=== PATIENT | female | born 1940 | race Two or more races ===

== ENCOUNTER 2017-10-22 05:45 | Day surgery (SDC) | payer MEDICARE, MEDICAID, SELFPAY ==
--- NOTE | 2017-10-18 10:21 | Pre-Procedure Note/Attestation ---
Pre-Procedure Note/Attestation Complete Prior to Procedure Planned Procedure: left Procedure Narrative: 1. CATARACT EXTRACTION WITH PHACO AND PC IOL IMPLANTATION, LEFT EYE. 2. LIMBAL RELAXING INCISION, LEFT EYE. Indications for Procedure Pre-Operative Diagnosis: 1. CATARACT (AGE RELATED NUCLEAR) , LEFT EYE. 2.ASTIGMATISM , LEFT EYE. Attestation I attest that I discussed the nature of the procedure; its benefits; risks and complications; and alternatives (and the risks and benefits of such alternatives ), prior to the procedure, with the patient (or the patient's legal service support representative). I attest that, if there was a reasonable possibility of needing a blood transfusion, the patient (or the patient's legal service support representative) was given the [place] Department [employer] standardized written summary, pursuant to the Epifanio Catlett Blood Safety Act ([place] Health and Safety Code # 1645, as amended). I attest that I re-evaluated the patient just prior to the surgery and that there has been no change in the patient's H&P, except as documented below: Gian Lee MD Oct 18, 2017 10:21
[2017-10-22] VITALS (9 sets, daily range): BP systolic 139–155; BP diastolic 65–81
[~2017-10-22] VITALS: Ht 152.4 cm; Wt 77.1 kg
[~2017-10-22 05:45] MED LIST: AMLODIPINE BESYL5 MG ORAL; JANUMET 50-5001 EACH ORAL; LEXAPRO10 MG ORAL; MELOXICAM15 MG PO; NEXIUM40 MG ORAL; NORVASC5 MG ORAL; TRAMADOL HCL50 MG ORAL; VIT D PO; VYTORIN 10-401 EACH ORAL; ZANTAC150 MG ORAL
[2017-10-22] MEDS ORDERED: acetaZOLAMIDE 125mg tab ORAL ONE (06:00)
[2017-10-22] MEDS: Akten 3.5% 1ml Btl LEFT EYE SCH ×3 (06:10→06:36)
[2017-10-22] MEDS: Diclofenac Sod 0.1% Op Soln LEFT EYE SCH ×3 (06:11→06:36)
[2017-10-22] MEDS: Vigamox Opth Soln 3ml LEFT EYE SCH ×3 (06:11→06:36)
[2017-10-22] MEDS: Phenylephrine 10% Opth Soln 5ml LEFT EYE SCH ×3 (06:11→06:36)
[2017-10-22] MEDS: Tropicamide 1% Opth 15ml Soln LEFT EYE SCH ×3 (06:11→06:36)
[2017-10-22] MEDS ORDERED: Lidocaine 1% MPF 10mg/ml 5ml ONE (07:02)
[2017-10-22] MEDS ORDERED: EPINEPHrine 1mg/1ml Amp ONE (07:02)
[2017-10-22] MEDS ORDERED: Carbachol 0.01% Op Soln 1.5ml vial ONE (07:03)
--- NOTE | 2017-10-22 07:41 | Anethesia Preoperative Eval ---
Anesthesia Pre-op PMH/ROS General Date of Evaluation: Oct 22, 2017 Anesthesiologist: Avery ASA Score: ASA 3 Mallampati Score Class I : Soft palate, uvula, fauces, pillars visible Class II: Soft palate, uvula, fauces visible Class III: Soft palate, base of uvula visible Class IV: Only hard plate visible Mallampati Classification: Class II Surgeon: Jameel Diagnosis: Left cataract Surgical Procedure: Left cataract extraction with IOL Anesthesia History: none Family History: no anesthesia problems Allergies: Coded Allergies: No Known Allergies (Unverified , 10/04/17) Medications: see eMAR Past Medical History Cardiovascular: Reports: HTN, other - HLD; Denies: CAD, OK, valve dz, arrhythmia Pulmonary: Denies: asthma, COPD, GINO, other Gastrointestinal/Genitourinary: Reports: GERD; Denies: CRI, ESRD, other Neurologic/Psychiatric: Reports: depression/anxiety; Denies: dementia, CVA, TIA, other Endocrine: Reports: DM; Denies: hypothyroidism, steroids, other HEENT: Denies: cataract (L), cataract (R), glaucoma, NEWTOK (L), NEWTOK (R), other Hematology/Immune: Reports: other - Left breast cancer; Denies: anemia, DVT, bleeding disorder Musculoskeletal/Integumentary: Reports: OA; Denies: RA, DJD, DDD, edema, other PSxH Narrative: right cataract, left mastectomy, KATHERINE BSO, bilateral TKR Anesthesia Pre-op Phys. Exam Physician Exam Last Vital Signs Date Time Temp Pulse Resp B/P (MAP) Pulse Ox O2 Delivery O2 Flow Rate FiO2 10/22/17 06:27 97.7 78 20 152/79 97 Room Air 97.7 Constitutional: NAD Cardiovascular: RRR Respiratory: CTA Airway Exam Mallampati Score: Class II MO: full ROM: full Anesthesia Pre-op A/P Labs see chart Studies Pre-op Studies: EKG - sr Risk Assessment & Plan Assessment: ASA III Plan: MAC Status Change Before Surgery: No Pre-Antibiotics Drug: N/A ELIDIA GARCIA M.D. Oct 22, 2017 07:41
[2017-10-22] MEDS ORDERED: LR 1000ml 1,000 ML IVLG SCH (07:47)
[2017-10-22] MEDS ORDERED: Labetalol 5mg/ml 20ml vial IV PRN (08:00)
[2017-10-22] MEDS ORDERED: DiphenhydrAMINE 50mg/ml Inj IVP PRN (08:00)
--- NOTE | 2017-10-22 08:54 | Immediate Post-Op Evaluation ---
Immediate Post-Op Evalulation Immediate Post-Op Evalulation Procedure: Left cataract extraction with IOL Date of Evaluation: Oct 22, 2017 Time of Evaluation: 09:33 IV Fluids: 300 Blood Products: 0 Estimated Blood Loss: 0 Urinary Output: 0 Blood Pressure Systolic: 150 Blood Pressure Diastolic: 81 Pulse Rate: 88 Respiratory Rate: 16 O2 Sat by Pulse Oximetry: 98 Temperature (Fahrenheit): 99.2 Pain Score (1-10): 0 Nausea: No Vomiting: No Complications 0 Patient Status: awake, reacts, patent, none Hydration Status: adequate Drug: N/A ELIDIA GARCIA M.D. Oct 22, 2017 08:54
--- NOTE | 2017-10-22 08:55 | 48 Hour Post Anesthesia Eval ---
Post Anesthesia Evaluation Procedure: Left cataract extraction with IOL Date of Evaluation: Oct 22, 2017 Airway: patent Nausea: No Vomiting: No Pain Intensity: 0 Hydration Status: adequate Cardiopulmonary Status: at baseline Mental Status/LOC: patient returned to baseline Post-Anesthesia Complications: 0 Follow-up care needed: ready to discharge ELIDIA GARCIA M.D. Oct 22, 2017 08:55
[2017-10-22] MEDS ORDERED: Sodium Hyaluronate 10 mg/ml 0.85ml ONE (09:11)
--- NOTE | 2017-10-22 09:32 | Discharge Summary ---
Discharge Summary Discharge Summary Discharge Summary DATE OF ADMISSION: 10/22/2017 DATE OF DISCHARGE: 10/22/2017 REASON FOR HOSPITALIZATION: 1- Cataract, left eye 2- Astigmatism, Left eye SURGERY PERFORMED: 1- Cataract extraction with phaco and PC IOL implantation, left eye 2- Limbal relaxing incision ( LRI ), left eye CONDITION IN THE HOSPITAL:The patient tolerated the surgery without complications. DISCHARGE CONDITION: The patient was stable at discharge. DISCHARGE MEDICATIONS: 1. Vigamox eye drops one drop q.i.d, OS 2. Prednisolone one drop q.i.d, OS 3. Prolensa 1 drop qd, OS POSTOPERATIVE ORDERS: The patient has to rest at home. No bending, No lifting, No watching Television tonight. POSTOPERATIVE FOLLOW UP: The patient will be followed in my office tomorrow morning at 7 o'clock. Gian Lee MD Oct 22, 2017 09:32
--- NOTE | 2017-10-22 09:36 | Brief Operative Note ---
Immediate Post Operative Note Operative Note Chief Complaint: Blurry vision, difficulty driving and reading, left eye Pre-op Diagnosis: 1. CATARACT (AGE RELATED NUCLEAR) , LEFT EYE. 2.ASTIGMATISM , LEFT EYE. Procedure: 1- Cataract extraction with phaco and PC IOL implantation, left eye 2- Limbal Relaxing incision, ( LRI ), left eye Post-op Diagnosis: same as pre-op Surgeon: Gian Lee MD. Showroom Salesperson: None Additional Surgeons: None Anesthesiologist: Dr. Varela Anesthesia: MAC Specimen: none Complications: none Condition: stable Fluids: 500ml Estimated Blood Loss: none Drains: none Implant(s) used?: Yes - Multifocal PC IOL implanted in the left eye without complication Gian Lee MD Oct 22, 2017 09:36
[2017-10-22] MEDS ORDERED: acetaZOLAMIDE 125mg tab ONE (09:46)
--- NOTE | 2017-10-22 22:15 | Operative Note - Dictated ---
DATE OF OPERATION: 10/22/2017 FACILITY: [facility]. SURGEON: Gian Lee M.D. TOWER CLEANER: None. ANESTHESIOLOGIST: Sanjuana Varela M.D. ANESTHESIA: Monitored anesthesia care (MAC). PREOPERATIVE DIAGNOSES: 1. Cataract, left eye. 2. Astigmatism, left eye. POSTOPERATIVE DIAGNOSES: 1. Cataract, left eye. 2. Astigmatism, left eye. SURGERY PERFORMED: 1. Cataract extraction with phacoemulsification of posterior chamber intraocular lens implantation in the left eye. 2. Limbal relaxing incision (LRI) in the left eye. INDICATION FOR SURGERY: The patient is a 78-year-old lady with history of left breast cancer, status post total mastectomy, diabetes mellitus type 2, hypertension, obesity, hypercholesterolemia, osteoarthritis, GERD, atrophic vaginitis, osteopenia and morbid obesity. Surgical history including hysterectomy, bilateral oophorectomy, mastectomy, bilateral knee replacement, and breast cancer. Medications including Janumet, amlodipine, Vytorin, escitalopram, Nexium, meloxicam, tramadol, ranitidine, Estrace vaginal cream. She is not a smoker and she is not a drinker. She is not allergic to any medications. She has had cataract surgery in the right eye two weeks ago and she is very happy with the results. Now, she is complaining of blurred vision in the left eye. On examination of the left eye, the cornea is clear. Anterior chamber is clean and quiet, but very very shallow. Pupillary reflex is normal. There is no RAPD. There is 3+ nuclear sclerosis and 2+ cortical cataract. Funduscopy shows normal optic disc, normal macula and normal periphery retina. The patient had high hyperopia, +9 diopter of hypertropia, and therefore, is legally blind without glasses. To improve her vision in the left eye, the cataract has to be removed and posterior chamber intraocular lens has to be implanted. Also, the patient has astigmatism and limbal relaxing incision is indicated for treatment of astigmatism as well. INFORMED CONSENT: The nature of the surgery, risks, benefits, alternatives, and potential complications were explained all in detail to the patient. The potential complications including, but not limited to bleeding, infection, posterior capsular rupture, lens subluxation, flat anterior chamber, iris prolapse, uveitis, corneal edema, macular edema, flat anterior chamber, endophthalmitis, retinal detachment, loss of vision, and even loss of the eye were all explained in detail to the patient. The patient voiced understanding and accepted all the complications. The alternatives including accommodating lens, multifocal lens, toric lens, and conventional cataract surgery with limbal relaxing incision (LRI) for treatment of astigmatism were all explained in detail to the patient. The patient patient voiced understanding and accepted all the complications. The patient elected to have cataract surgery with insertion of multifocal lens and limbal relaxing incision for treatment of astigmatism. She signed the consent form, which is in the chart. DESCRIPTION OF SURGERY AND FINDINGS: Following that, the patient was taken to the operating room in stable condition. Lidocaine gel Akten 3.5% were applied to the conjunctiva of the left eye. Following that IV sedation was given by the anesthesiologist, Dr. Varela. After adequate anesthesia and sedation had been achieved, the left eye was prepped and draped in sterile fashion for intraocular surgery. Following that, a speculum was placed in the left eye. Before the patient was taken to the operation room, the cornea was marked at 180 and 90 meridian. In the operating room, using a corneal marker and marking pen, the steep meridian of the cornea was marked. Following that, using a heather knife with the standard blades two parallel incisions were created in the region of the cornea due to the astigmatism. Following that, using a Super Sharp knife, a clear corneal side port was created. Then 1% lidocaine without preservative (MPF) was injected into the anterior chamber. The viscoelastic agent Healon was injected into the anterior chamber. Following that, using a 2.8 mm keratome, a clear corneal temporal site keratotomy was performed. Viscoelastic agent was injected into the anterior chamber again. Following that, Vision Blue was injected under the viscoelastic agent to stain the anterior capsule of the crystalline lens. Following that, clear fresh viscoelastic agent was injected under the Vision Blue. Following that, anterior capsulotomy in the fashion of capsulorrhexis was created under the viscoelastic agent beautifully. following that, whole viscoelastic was removed from the anterior chamber. Following that, using balanced salt solution, hydrodissection and hydrodelineation were performed and the nucleus was freed. Following that, clear fresh viscoelastic agent was injected into the anterior chamber again to protect the endothelium of the cornea. Following that, using phacoemulsification machine in the fashion of horizontal chop, the nucleus was removed in toto. Following that, the cortical material was removed from the capsular bag using irrigation aspiration unit and the capsular bag was polished at the end. Following that, a 32.0 diopter VLB00 foldable PCIOL with serial number [id number] was injected into the capsular bag. Following that, using a Sinskey hook, the lens was manipulated within the proper position. Following that, the viscoelastic agent was removed from the anterior and posterior part of the lens. Following that, the anterior chamber was filled with balanced salt solution and the wound was hydrated with balanced salt solution. The wound was checked for leakage, there was no leakage. Vigamox eye drops were applied to the conjunctiva of the left eye. The patient tolerated the surgery without complications. At the end of the surgery, Vigamox eye drops were applied to the conjunctiva of the left eye. The eye was patched with a clear sterile fenestrated shield. Following that the patient was transferred to the recovery room. In the recovery room, 125 mg Diamox was given by mouth stat. Postoperative orders and directions were given to the patient. The patient will be discharged home upon stabilization. The patient will be followed in my office tomorrow morning at 6:45 a.m. Gian Lee M.D. DR: KOBE JOB#: [id number] CC:
== END 2017-10-22 11:00 | disposition home or self-care (01) ==
LOC: SUR 05:45
DX: H25.12 Age-related nuclear cataract, left eye (principal); H25.012 Cortical age-related cataract, left eye; H52.202 Unspecified astigmatism, left eye; Z85.3 Personal history of malignant neoplasm of breast; Z90.12 Acquired absence of left breast and nipple; E11.9 Type 2 diabetes mellitus without complications; I10 Essential (primary) hypertension; E78.00 Pure hypercholesterolemia, unspecified; M19.90 Unspecified osteoarthritis, unspecified site; K21.9 Gastro-esophageal reflux disease without esophagitis; M85.80 Other specified disorders of bone density and structure, unspecified site; Z96.653 Presence of artificial knee joint, bilateral; F32.9 Major depressive disorder, single episode, unspecified; F41.9 Anxiety disorder, unspecified; E78.5 Hyperlipidemia, unspecified
CPT/HCPCS: 65772; 66984; 82962; J0171; V2632; 94003; 94150